=== PATIENT | male | born 1990 ===

== ENCOUNTER 2022-11-05 13:03 | Emergency (ER) | payer OTHER, SELFPAY ==
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
[2022-11-05 13:13] VITALS: BP 156/70; PULSE 87; RESP 20; TEMP 37; O2SAT 99
--- NOTE | 2022-11-05 13:17 | ED.HEATRA ---
HPI - Head Injury General Chief complaint: Head Injury Stated complaint: Jaw Injury/Right Side Time Seen by Provider: 11/05/22 13:23 Source: patient Mode of arrival: ambulatory Limitations: no limitations History of Present Illness HPI Narrative: 32-year-old male presented for complaint of right jaw pain after injury last night. He states he was playing competitive softball when he was running the bases and was struck by a ball when it was thrown. Reports difficulty/pain with opening the mouth all the way. Describes pain as throbbing, rates pain 7/10. Denies popping/clicking. States the site was bleeding but has resolved. Endorses occasional episodes of dizziness since 0300. He did not lose consciousness at time of injury. Does not wear helmet when playing. Applied ice immediately, took Tylenol last night. Denies n/v, vision changes. Related Data Home Medications Medication Instructions Recorded Confirmed paliperidone palmitate 156 mg/mL 156 mg IM WEEKLY 11/05/22 11/05/22 intramuscular syringe (Invega Sustenna) Allergies Allergy/AdvReac Type Severity Reaction Status Date / Time No Known Allergies Allergy Verified 11/05/22 13:27 Review of Systems Review of Systems: CONSTITUTIONAL: Denies body aches, fever, chills, or sweats. EYES: Denies visual changes, redness, or discharge. ENT: Reports right jaw pain Denies rhinorrhea or epistaxis CARDIOVASCULAR: Denies chest pain, palpitations, or edema. RESPIRATORY: Denies cough or dyspnea. GASTROINTESTINAL: Denies abdominal pain, nausea, vomiting, or diarrhea. SKIN: Denies rash, itching, or wounds. MUSCULOSKELETAL: Denies back pain or myalgia. NEUROLOGIC: Denies headache, numbness, tingling, or weakness. All systems reviewed & are unremarkable except as noted in HPI and below PMFSH Past Medical History Medical History (Updated 11/05/22 @ 15:27 by Ana Paula Franklin APRN) No pertinent past medical history Social History Social History Smoking status: Smoker, status unknown Alcohol intake: never Comments At time of signature, I have reviewed and agree with nursing past medical, surgical, social and family history unless otherwise noted. Please see nursing chart for further information. There is no relevant family history pertinent to the presenting complaint Exam Narrative: GENERAL: Appears in pain, in no acute distress. HEAD: Normocephalic, atraumatic. EYES: EOMI. No redness or drainage. Conjunctivae normal. ENT: Right TMJ with mild swelling and erythema with tenderness, tenderness to mid right mandible with palpation, Difficulty fully opening mouth due to pain reported. No apparent deformity to mandible. Mucous membranes pink and moist. No bleeding, No apparent laceration or source of bleeding to oral mucosa. No apparent dental fracture or laxity. No sublingual hematoma. No rhinorrhea/epistaxis. TMs normal bilaterally. Throat normal. Uvula midline. NECK: Normal AROM. Supple. No VPT. CHEST: Clear to auscultation. HEART: Regular rate and rhythm. No murmur appreciated. Normal peripheral pulses. SKIN: Warm, dry, no rash. Capillary refill normal. Normal skin turgor. NEURO: No focal deficits. Sensation intact to face. Alert and oriented x3. Gait steady. PSYCH: Normal affect. Course Course Emergency Course: Patient is aware of diagnosis, understands and agrees to treatment plan. Anticipatory guidance given. Portions of this record may have been created with voice recognition software Level of Care: Express Care Visit Vital Signs Vital signs: Vital Signs Temperature 98.6 F 11/05/22 13:13 Pulse Rate 87 11/05/22 13:13 Respiratory Rate 20 11/05/22 13:13 Blood Pressure 156/70 H 11/05/22 13:13 Pulse Oximetry 99 11/05/22 13:13 Oxygen Delivery Room Air 11/05/22 13:13 Temperature 98.6 F 11/05/22 13:13 Pulse Rate 87 11/05/22 13:13 Respiratory Rate 20
[2022-11-05] MEDS: IBUPROFEN 400 MG TABLET 800 MG PO (15:19)
--- NOTE | 2022-11-05 15:30 | PC.NURSE ---
REPORT GIVEN TO MARCUS YODER RN
== END 2022-11-05 16:00 | disposition short-term general hospital (02) ==
PROVIDERS: Emergency Provider Nurse Practitioner Family; PCP Family Medicine
DX: S02.611A Fracture of condylar process of right mandible, initial encounter for closed fracture (principal); W21.07XA Struck by softball, initial encounter; Y93.64 Activity, baseball
CPT/HCPCS: 70110; 99213; A9270; G0463